=== PATIENT | female | born 1960 | race Hispanic/Latino ===

== ENCOUNTER 2024-05-26 12:52 | Outpatient (CLI) | payer OTHER | END 2024-05-26 12:53 | disposition home or self-care (01) | LOC: CSHMAMMO 12:52 | PROVIDERS: ATTEND Family Medicine | DX: Z12.31 Encounter for screening mammogram for malignant neoplasm of breast (principal) | CPT/HCPCS: 77063; 77067 ==

== ENCOUNTER 2024-06-29 15:04 | Outpatient (CLI) | payer OTHER ==
[2024-06-29 16:59] LABS: ALV-art Gradient 41.405 mmHg (0-20); Analyzer IN Cardio CS ER; Base Excess (BEa) 1.4 mEq/L (-2.0 to +3.0); CO2 Tension 40.9 mmHg (35.0-45.0); Carboxyhemoglobin (COHb) 0.8 gm% (0.0-3.0); Hematocrit-ABG 48 % (36.0-47.0); Hemoglobin (Hb) 16.2 g/dL (12.0-16.0); O2 Tension (PaO2), arterial 57.2 mmHg (> 80.0); Potassium - ABG Lab 3.35 mmol/L (3.70-5.30); Puncture Site Right Radial artery; pH, Arterial 7.421 (7.35-7.45)
== END 2024-06-29 15:05 | disposition home or self-care (01) ==
LOC: CSHCP 15:04
PROVIDERS: ATTEND Internal Medicine
DX: E66.2 Morbid (severe) obesity with alveolar hypoventilation (principal); R94.2 Abnormal results of pulmonary function studies
CPT/HCPCS: 82330; 82375; 82805; 82947; 83605; 94010; 94726; 94729; 94760

== ENCOUNTER 2024-07-26 07:59 | Day surgery (SDC) | payer OTHER ==
[2024-07-19 12:54] VITALS: BMI 49.1
[2024-07-26] MEDS ORDERED: PROPOFOL 60 ML ONE (09:54)
== END 2024-07-26 11:52 | disposition home or self-care (01) ==
LOC: CSHSDC 07:59
PROVIDERS: ATTEND Surgery
PROC: 0DBL8ZZ Excision of Transverse Colon, Via Natural or Artificial Opening Endoscopic (ICD-10-PCS; principal; 2024-07-26)
PROC: 0DBN8ZZ Excision of Sigmoid Colon, Via Natural or Artificial Opening Endoscopic (ICD-10-PCS; principal; 2024-07-26)
DX: Z12.11 Encounter for screening for malignant neoplasm of colon (principal); D12.6 Benign neoplasm of colon, unspecified; D12.3 Benign neoplasm of transverse colon; K63.5 Polyp of colon; E66.01 Morbid (severe) obesity due to excess calories; I10 Essential (primary) hypertension; E78.5 Hyperlipidemia, unspecified; E78.00 Pure hypercholesterolemia, unspecified; G47.33 Obstructive sleep apnea (adult) (pediatric); K21.9 Gastro-esophageal reflux disease without esophagitis; Z98.890 Other specified postprocedural states; Z87.891 Personal history of nicotine dependence; Z79.899 Other long term (current) drug therapy; Z79.82 Long term (current) use of aspirin; Z90.710 Acquired absence of both cervix and uterus; Z88.2 Allergy status to sulfonamides; Z88.5 Allergy status to narcotic agent; Z86.0100 Personal history of colon polyps, unspecified
CPT/HCPCS: 88305; J2704

== ENCOUNTER 2025-05-02 13:32 | Outpatient (CLI) | payer OTHER | END 2025-05-02 13:33 | disposition home or self-care (01) | LOC: CSHDTY/OP 13:32 | PROVIDERS: ATTEND Nurse Practitioner Family | DX: E11.9 Type 2 diabetes mellitus without complications (principal) | CPT/HCPCS: 97802 ==

== ENCOUNTER 2025-05-09 13:55 | Outpatient (CLI) | payer OTHER | END 2025-05-09 13:56 | disposition home or self-care (01) | LOC: CSHMAMMO 13:55 | PROVIDERS: ATTEND Family Medicine | DX: N63.0 Unspecified lump in unspecified breast (principal) | CPT/HCPCS: 77066; G0279 ==